=== PATIENT | male | born 1975 | race American Indian/Alaskan Native ===

== ENCOUNTER 2019-11-12 11:58 | Emergency (ER) | payer SELFPAY ==
[2019-11-12 12:43] VITALS: BP 175/95
--- NOTE | 2019-11-12 12:44 | Emergency Department Report ---
Chief Complaint: Nausea/Vomiting/Diarrhea Stated Complaint: STOMACH/BACK PAIN/ FALL Time Seen by Provider: 11/12/19 12:43 - Exam Vital Signs: Vital Signs 11/12/19 12:41 Temperature 98.5 F Pulse Rate 77 Respiratory 20 Rate Blood Pressure 175/95 O2 Sat by Pulse 96 Oximetry MSE screening note: Focused history and physical exam performed. Due to findings the following was ordered: back pain for 5-6 months, ambulatory, no neurological symptoms, referred to outpatient physician FATMATA completed ED Disposition for MSE Clinical Impression: Back pain Disposition: MED SCREENING EXAM-LEFT Condition: Stable Referrals: TASHA VARGAS MD [Staff Physician] - 3-5 Days Forms: Work/School Release Form(ED)
== END 2019-11-12 12:43 | disposition left against medical advice (07) ==
LOC: ED 11:58
DX: M54.9 Dorsalgia, unspecified (principal)
CPT/HCPCS: 99281